=== PATIENT | male | born 1975 | race Caucasian/White ===

== ENCOUNTER 2019-05-08 20:11 | Emergency (ER) | payer SELFPAY ==
[~2019-05-08] VITALS: Ht 175.3 cm; Wt 69.1 kg
--- NOTE | 2019-05-08 20:59 | NUR ---
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
[2019-05-08 21:11] LABS: RAPID INFLUENZA A POSITIVE (Negative); RAPID INFLUENZA B Negative (Negative)
[2019-05-08] MEDS ORDERED: ACETAMINOPHEN 500 MG TABLET PO ONE (21:30)
[2019-05-08] MEDS ORDERED: ONDANSETRON ODT 4 MG PO ONE (21:30)
[2019-05-08] MEDS ORDERED: ONDANSETRON ODT 4 MG ONE (21:32)
[2019-05-08] MEDS ORDERED: ACETAMINOPHEN 500 MG TABLET ONE (21:32)
[2019-05-08] MEDS ORDERED: IBUPROFEN 200 MG TABLET PO ONE (22:00)
[2019-05-08] MEDS ORDERED: IBUPROFEN 200 MG TABLET ONE (22:02)
[2019-05-08 22:52] VITALS: BP 114/73
== END 2019-05-08 23:05 | disposition home or self-care (01) ==
LOC: ED 23:00
DX: J10.1 Influenza due to other identified influenza virus with other respiratory manifestations (principal); F15.10 Other stimulant abuse, uncomplicated; Z72.9 Problem related to lifestyle, unspecified; F17.210 Nicotine dependence, cigarettes, uncomplicated
CPT/HCPCS: 71046; 87400; 99284; Q0162

== ENCOUNTER 2020-04-11 16:41 | Emergency (ER) | payer SELFPAY ==
[~2020-04-11] VITALS: Ht 175.3 cm; Wt 63.0 kg
[2020-04-11 17:16] VITALS: BP 125/76
[2020-04-11 17:20] LABS: AMPHETAMINE SCREEN, URINE Negative (Negative); BARBITURATE SCREEN, URINE Negative (Negative); BENZODIAZEPINE SCREEN, URINE Negative (Negative); CANNABINOID SCREEN, URINE Negative (Negative); COCAINE SCREEN, URINE Negative (Negative); METHADONE SCREEN, URINE Negative (Negative); OPIATE SCREEN, URINE Negative (Negative)
--- NOTE | 2020-04-11 17:29 | NUR ---
PT BIB [facility] FROM [place]. PT WAS RELEASED FROM [facility] TODAY. PT WAS BROUGHT HERE BECAUSE [facility] REPORTED THAT PATIENT WAS SEEN IN HIS CELL WITH A TOWEL AROUND HIS NECK. PT DENIES VILMA SUICIDAL IDEATION OR SUICIDE ATTEMPT AND STATES THAT THERE HAS BEEN A MISUNDERSTANDING AND THAT HE WAS SIMPLY TRYING TO USE THE DAMP TOWEL TO COOL DOWN BECAUSE HE WAS FEELING VERY ANXIOUS AND HOT. PT RESTING WITH NO COMPLAINTS AND IS WATCHING TV. AWAITING ER PROVIDER.
--- NOTE | 2020-04-11 17:42 | NUR ---
THIS FLOAT RN AT BEDSIDE TO DC PT. PT VERBALIZED UNDERSTANDING TO DC INSTRUCTIONS. CALLING PARENTS TO PICK HIM UP FROM ED. PT RELEASED FROM [facility] BY ED JYOTI MCODNOUGH. PT CONTINUES TO DENY SI/HI AT TIME OF DC. AMBULATORY C STEADY GAIT.
== END 2020-04-11 17:44 | disposition home or self-care (01) ==
LOC: ED 17:00
DX: F43.0 Acute stress reaction (principal); F41.9 Anxiety disorder, unspecified; Z87.891 Personal history of nicotine dependence
CPT/HCPCS: 80307; 99283

== ENCOUNTER 2020-08-17 22:53 | Emergency (ER) | payer SELFPAY ==
[~2020-08-17] VITALS: Ht 177.8 cm; Wt 64.1 kg
[2020-08-17 22:58] VITALS: BP 131/74
--- NOTE | 2020-08-17 23:06 | NUR ---
CC OF SWELLING IN RIGHT LOWER JAW WITH ASSOCIATED RIGHT EAR DISCOMFORT. PT STATES HE HAD TOOTH PULLED 1 MONTH AGO.
== END 2020-08-18 00:03 | disposition home or self-care (01) ==
LOC: ED 23:15
DX: K11.21 Acute sialoadenitis (principal)
CPT/HCPCS: 99283

== ENCOUNTER 2020-11-24 05:45 | Emergency (ER) | payer OTHER ==
[~2020-11-24] VITALS: Ht 177.8 cm; Wt 63.0 kg
--- NOTE | 2020-11-24 06:44 | NUR ---
REPORT GIVEN TO EVA JIMENES.
--- NOTE | 2020-11-24 06:44 | NUR ---
report from EVA Damon
[2020-11-24 06:46] LABS: BASOPHILS % (AUTO) 1 % (0-1); EOSINOPHILS % (AUTO) 2 % (1-7); LYMPHOCYTES % (AUTO) 23 % (22-44); MEAN CORPUSCULAR HEMOGLOBIN 30.4 pg (27.5-34.5); MEAN CORPUSCULAR HGB CONC 33.9 g/dL (33.2-36.2); MEAN PLATELET VOLUME 7.2 fL (7.4-10.4); MONOCYTES % (AUTO) 12 % (2-9); NEUTROPHILS % (AUTO) 61 % (42-75); PLATELET COUNT 329 x10^3/uL (130-400); RED BLOOD COUNT 4.94 x10^6/uL (4.38-5.82); RED CELL DISTRIBUTION WIDTH 12.7 % (9.4-14.8)
--- NOTE | 2020-11-24 06:50 | NUR ---
PT RESTING ON [place]ETA ON HIS PHONE, NADN/VSS. PT UPDATED ON POC. CALL LIGHT WITHIN REACH, BED IN LOWEST POSITION, BED RAILS UP. PT STATES NO NEEDS AT THIS TIME
[2020-11-24 06:55] LABS: ALANINE AMINOTRANSFERASE 28 U/L (12-78); ALBUMIN 3.5 g/dL (3.4-5.0); ANION GAP 4 mmol/L (5-15); CALCIUM 8.7 mg/dL (8.5-10.1); CHLORIDE 104 mmol/L (98-107); CREATININE 0.87 mg/dL (0.7-1.3)
[2020-11-24 06:57] LABS: ALKALINE PHOSPHATASE 110 U/L (45-117); BILIRUBIN,TOTAL 0.4 mg/dL (0.2-1.0); TOTAL PROTEIN 7.7 g/dL (6.4-8.2)
--- NOTE | 2020-11-24 07:22 | NUR ---
PT TO CT
--- NOTE | 2020-11-24 07:31 | NUR ---
PT BACK FROM CT, CONNECTED TO MONITORS, CALL LIGHT WITHIN REACH. BED IN LOWEST POSITION, BED RAILS UP X2
[2020-11-24] MEDS ORDERED: OMNIPAQUE 350 MG/ML, 100ML BOTTLE ONE (08:07)
[2020-11-24 08:15] VITALS: BP 132/65
--- NOTE | 2020-11-24 08:16 | NUR ---
PT SITTING ON GURNEY ON HIS PHONE, NADN/VSS. CALL LIGHT WITHIN REACH. BED IN LOWEST POSITION. WCTM
--- NOTE | 2020-11-24 08:22 | NUR ---
ERP AT BS TO UPDATE PT ON POC
--- NOTE | 2020-11-24 08:53 | NUR ---
Patient given discharge instructions and they have confirmed that they understand the instructions. Patient ambulatory with steady gait. PT SIGNED AMA FORM, STATES HE WILL RETURN IN 2 HOURS. ERP AWARE
== END 2020-11-24 08:51 | disposition left against medical advice (07) ==
LOC: ED 07:46
DX: C85.81 Other specified types of non-Hodgkin lymphoma, lymph nodes of head, face, and neck (principal); D49.89 Neoplasm of unspecified behavior of other specified sites; R07.89 Other chest pain; F17.200 Nicotine dependence, unspecified, uncomplicated
CPT/HCPCS: 36415; 70491; 71046; 80053; 83690; 85025; 85379; 93005; 99285; Q9967

== ENCOUNTER 2020-11-28 00:02 | Inpatient (IN) | payer OTHER ==
[~2020-11-28] VITALS: Ht 175.3 cm; Wt 65.2 kg
--- NOTE | 2020-11-28 01:23 | NUR ---
REPORT TO DAVE VELASQUEZ ALL QUESTIONS ADDRESSED. PT READY FOR TRANSFER TO FLOOR
[2020-11-28 01:45] VITALS: BP 127/89
[2020-11-28] MEDS ORDERED: morphine SULFATE 10 MG/ML, 1ML IVPush PRN (04:00)
[2020-11-28] MEDS ORDERED: ONDANSETRON 2MG/ML, 2ML IVPush PRN (04:00)
[2020-11-28] MEDS: HEPARIN 5,000 UNITS/ML, 1ML SQ SCH ×2 (04:30→12:03)
[2020-11-28] MEDS ORDERED: MELATONIN 5 MG TABLET PO PRN (04:30)
[2020-11-28] MEDS: LACTATED RINGERS 1,000 ML IV SCH ×2 (05:10→12:01)
[2020-11-28 06:30] LABS: BASOPHILS % (AUTO) 1 % (0-1); EOSINOPHILS % (AUTO) 5 % (1-7); LYMPHOCYTES % (AUTO) 40 % (22-44); MEAN CORPUSCULAR HEMOGLOBIN 30.7 pg (27.5-34.5); MEAN CORPUSCULAR HGB CONC 33.8 g/dL (33.2-36.2); MEAN PLATELET VOLUME 7.4 fL (7.4-10.4); MONOCYTES % (AUTO) 14 % (2-9); NEUTROPHILS % (AUTO) 41 % (42-75); PLATELET COUNT 310 x10^3/uL (130-400); RED BLOOD COUNT 5.02 x10^6/uL (4.38-5.82); RED CELL DISTRIBUTION WIDTH 13.1 % (9.4-14.8)
[2020-11-28 08:39] VITALS: BP 132/94
[2020-11-28 13:47] VITALS: BP 135/94
[2020-11-28] MEDS ORDERED: LIDOCAINE 1%, 10ML ONE (16:25)
== END 2020-11-28 18:41 | disposition home or self-care (01) | DRG 816 ==
LOC: ED 00:15 → EDIP 01:33 → 4NW 01:39
PROVIDERS: ADMIT Internal Medicine; ATTEND Family Medicine
PROC: 0HB1XZX Excision of Face Skin, External Approach, Diagnostic (ICD-10-PCS; principal; 2020-11-28)
DX: R59.1 Generalized enlarged lymph nodes (principal); F17.200 Nicotine dependence, unspecified, uncomplicated
CPT/HCPCS: 36415; 99285; J3490; 20206; 76942; 84443; 85025; 88305; 88341; 88342; G0378; J2270; J7120